=== PATIENT | female | born 1970 | race Hispanic/Latino ===

== ENCOUNTER → 2019-09-25 | Outpatient (CLI) | payer BC ==
[~2019-09-25] MED LIST: IOHEXOL 350 MG/ML 100ML INFUS..BTL IV ONE
== END | disposition home or self-care (01) ==
LOC: RAH 09:18
PROVIDERS: ATTEND Internal Medicine Cardiovascular Disease
DX: K44.9 Diaphragmatic hernia without obstruction or gangrene (principal); J98.11 Atelectasis; K82.8 Other specified diseases of gallbladder; Z86.718 Personal history of other venous thrombosis and embolism
CPT/HCPCS: 74178; Q9967